=== PATIENT | female | born 1985 | race Caucasian/White ===

== ENCOUNTER 2018-06-23 09:04 | Emergency (ER) | payer OTHER ==
[~2018-06-23] VITALS: Ht 165.1 cm; Wt 88.5 kg
[2018-06-23 09:15] VITALS: BP 137/74
[2018-06-23] MEDS ORDERED: LIDOCAINE 1%-EPI 1:100,000 20 ML VIAL ONE (10:02)
[2018-06-23] MEDS ORDERED: CEPHALEXIN MONOHYDRATE 500 MG CAPSULE PO ONE (10:30)
[2018-06-23] MEDS ORDERED: IBUPROFEN 600 MG TABLET PO ONE (10:30)
[2018-06-23] MEDS ORDERED: SULFAMETH/TRIMETH 800/160 MG 1 UDTAB TABLET PO ONE (10:30)
[2018-06-23] MEDS ORDERED: LIDOCAINE 1%-EPI 1:100,000 20 ML VIAL TP ONE (10:30)
== END 2018-06-23 11:18 | disposition home or self-care (01) ==
LOC: ER 09:04
DX: L02.412 Cutaneous abscess of left axilla (principal)
CPT/HCPCS: 10060; 99283; A4606; A6403; A6407; J3490